=== PATIENT | male | born 1965 ===

== ENCOUNTER 2021-05-02 13:32 | Outpatient (REF) | payer SELFPAY ==
--- NOTE | 2021-05-02 16:30 | MHC.AU.HFU ---
Hearing Instrument Follow-Up- Binaural Date of Visit: 05/02/21 Right Ear: Superintendent Terminal: Phonak Model: [employer]ice Endeavors [id number] Serial Number: [id number] Repair Warranty: Loss and Damage Warranty: Battery Size: 312 Tubing: Size 2 slim tube Type of Dome: Medium open Dispensed By: [facility] Date of Fitting: ~2014 Left Ear: Superintendent Terminal: Phonak Model: Bolero [id number] Serial Number: [id number] Repair Warranty: Loss and Damage Warranty: Battery Size: 312 Tubing: Size 2 slim tube Type of Dome: Medium open Dispensed By: [facility] Date of Fitting: ~2014 Follow-Up Summary: Patient transferring to our clinic as [facility] no longer accepts his insurance. He was advised that his current plan does not cover hearing aids at all, as it is a connector plan. He notes that the aids don't seem to be working as well as they could be. Performed maintenance today, replaced domes and slim tubes. Aids are amplifying clearly. Saved programming in [place]. Increased overall gain by 2 dB. He reported improved sound quality. Recommended he return for a hearing re-evaluation, as his last eval was in 2014. Paid $185 transfer of care fee today. Recommendations: Recommendations: Hearing instrument maintenance in 6 months, or sooner if needed. Please contact our clinic with any questions or concerns. Diagnosis Code(s): Primary Diagnosis: H90.3 Bilateral Sensorineural Hearing Loss Signature: Provider: Sherri Rudolph, CCC-A
== END 2021-05-02 13:33 | disposition home or self-care (01) ==
LOC: HO.HAP 13:32
PROVIDERS: Visit Provider Internal Medicine
DX: Z46.1 Encounter for fitting and adjustment of hearing aid (principal); H90.3 Sensorineural hearing loss, bilateral
CPT/HCPCS: V5011

== ENCOUNTER 2021-09-12 09:49 | Outpatient (REF) | payer OTHER, SELFPAY ==
--- NOTE | 2021-09-12 11:24 | MHC.AU.AHA ---
Adult Audiological Evaluation Date of Visit: 09/12/21 Reason for Appointment: History of hearing loss. Patient arrives today to determine if there has been a change in his hearing. He has noticed that speech seems less clear. History of noise exposure. Previous Hearing Test Results: At [facility] on 11/16/2014- Normal sloping to moderate sensorineural hearing loss bilaterally Ear History: Ear Deformity: None Reported Recent Ear Drainage: None Reported Recent Ear Pain: None Reported Family History of Hearing Loss?: No Recent Ear Infections: None Reported Ear Infections in Childhood: None Reported History of Ear Wax Buildup: Left Ear Previous Ear Surgery: None Reported Bothersome Tinnitus/Ringing/Noises in Ears: Both Ears Ear used on the phone: Left Ear History of occupational noise exposure?: Yes History: Yes Medical History: Medical History: Diabetes, Vascular Problems Hearing Instrument History- Right Ear: Tissue Technologist: [employer] Model: Collider Media [id number] Serial Number: [id number] Battery Size: 312 Repair Warranty: Loss and Damage Warranty: Dispensed By: [facility] Date of Fitting: ~2014 Hearing Instrument History- Left Ear: Tissue Technologist: [employer] Model: [employer]ider Media [id number] Serial Number: [id number] Battery Size: 312 Warranty: Loss and Damage Warranty: Dispensed By: [facility] Date of Fitting: ~2014 Otoscopy: Right Ear: Unremarkable Left Ear: Completely occluded w/cerumen. Cerumen removal performed prior to testing. Tympanometry: Tympanometry performed due to: To assess integrity of the middle ear system Right Ear: Could Not Obtain Seal Left Ear: Reduced Middle Ear Compliance (Type As) Hearing Evaluation: Transducer(s) Used: Insert Earphones Method: Conventional Audiometry Stimuli Used: Pure Tones Right Ear: Description of Hearing: Borderline sloping to moderately-severe sensorineural hearing loss Left Ear: Description of Hearing: Normal/borderline sloping to severe sensorineural hearing loss Speech Recognition Threshold (SRT): Method Used: Recorded Lists Stimuli Used: Spondee Words Right Ear: 35 dBHL Left Ear: 30 dBHL Word Discrimination: Method: Recorded Lists Word Lists Used: W-22 Right Ear: 88% at 70 dBHL Left Ear: 96% at 65 dBHL Most Comfortable Level (MCL): Right Ear: 70 dBHL Left Ear: 65 dBHL QuickSIN: Tested binaurally at 70 dBHL: Score of 2 dB SNR Loss, which suggests average level of difficulty listening in noise Comparison: Compared to most recent evaluation: High frequency thresholds have decreased bilaterally Interpretation of Results: Recommendations: Audiological re-evaluation in one year. Hearing aid maintenance performed today. Hearing aid(s) reprogrammed with updated test results. Diagnosis: Primary Diagnosis: H90.3 Bilateral Sensorineural Hearing Loss Signature: Provider: Sherri Arroyo, YSABEL-A
== END 2021-09-12 09:50 | disposition home or self-care (01) ==
LOC: HO.SH 09:49
PROVIDERS: Visit Provider Internal Medicine
DX: Z46.1 Encounter for fitting and adjustment of hearing aid (principal); H90.3 Sensorineural hearing loss, bilateral; H61.22 Impacted cerumen, left ear; Y37.90XA Military operations, unspecified, initial encounter; Y93.9 Activity, unspecified; Y92.9 Unspecified place or not applicable; Y99.8 Other external cause status; E11.9 Type 2 diabetes mellitus without complications
CPT/HCPCS: 92557; 92567

== ENCOUNTER 2021-09-12 11:05 | Outpatient (REF) | payer SELFPAY | END 2021-09-12 11:06 | disposition home or self-care (01) | LOC: HO.HAP 11:05 | PROVIDERS: PCP Internal Medicine; Visit Provider Internal Medicine | DX: Z46.1 Encounter for fitting and adjustment of hearing aid (principal); H90.3 Sensorineural hearing loss, bilateral; H61.22 Impacted cerumen, left ear; E11.9 Type 2 diabetes mellitus without complications | CPT/HCPCS: 92700 ==